=== PATIENT | female | born 1960 | race Caucasian/White ===

== ENCOUNTER 2017-01-01 13:26 | Emergency (ER) | payer MEDICAID, OTHER ==
[2017-01-01 13:48] VITALS: TEMP 98
[2017-01-01] MEDS ORDERED: MECLIZINE HCL 25 MG TAB PO ONE (14:37)
--- NOTE | 2017-01-01 14:41 | EDPHY ---
H & P Stated Complaint: pt c/o Dizzyness since last pm Time Seen by Provider: 01/01/17 14:09 HPI/ROS: CHIEF COMPLAINT: Vertigo HISTORY OF PRESENT ILLNESS: The patient is a 56-year-old female who comes to the emergency department complaining of intense intermittent vertigo since yesterday morning. She states that it began when she sat up in bed. It fatigues if she sits still. When she turns her head rapidly or sits up it begins again. She has not had any focal weakness or numbness. She is able to ambulate without difficulty. She does not have any vision or hearing changes. REVIEW OF SYSTEMS: Constitutional: denies: chills, fever, recent illness, recent injury EENTM: denies: blurred vision, double vision, nose congestion Respiratory: denies: cough, shortness of breath Cardiac: denies: chest pain, irregular heart rate, lightheadedness, palpitations Gastrointestinal/Abdominal: denies: abdominal pain, diarrhea, nausea, vomiting, blood streaked stools Genitourinary: denies: dysuria, frequency, hematuria, pain Musculoskeletal: denies: joint pain, muscle pain Skin: denies: lesions, rash, jaundice, bruising Neurological: denies: headache, numbness, paresthesia, tingling, dizziness, weakness Hematologic/Lymphatic: denies: blood clots, easy bleeding, easy bruising Immunologic/allergic: denies: HIV/AIDS, transplant - Physical Exam General Appearance: WD/WN, mild distress Eyes, Ears, Nose, Throat Exam: PERRL/EOMI, normal ENT inspection, pharynx normal nystagmus primarily with gaze to the right or with Hallpike to the right Neck: non-tender, full range of motion, supple, normal inspection. No: stiff neck, tender lateral Cardiovascular/Chest: normal peripheral pulses, regular rate, rhythm Respiratory: chest non-tender, lungs clear, normal breath sounds. No: crackles , rhonchi Gastrointestinal/Abdominal: normal bowel sounds, non tender, soft Back Exam: normal inspection Extremity: normal range of motion, non-tender, normal inspection Mental Status: alert, oriented x 3 CN's Exam: normal hearing, normal speech, PERRL, normal eye position, normal gag reflex, normal pupil position, normal speech. No: facial asymmetry, facial droop, facial paresthesias, gaze palsy, tongue deviation to R, tongue deviation to L Coordination/Gait: normal finger to nose, normal gait Motor/Sensory: normal. No: motor deficit, sensory deficit, pronator drift (R), pronator drift (L), weak motor strength RUE, weak motor strength LUE, weak motor strength RLE, weak motor strength LLE DTR: tricep (R): 2+, tricep (L): 2+, knee (R): 2+, knee (L): 2+ Skin Exam: warm/dry, normal color Lymphatic: no adenopathy Source: Patient Exam Limitations: No limitations - Medical/Surgical History Hx Asthma: No Hx Chronic Respiratory Disease: No Hx Diabetes: No Hx Cardiac Disease: No Hx Renal Disease: No Hx Cirrhosis: No Other PMH: FibroMyalgia/Insomina/ diabetic - Family History Significant Family History: No pertinent family hx - Social History Smoking Status: Smoker current status UNK Alcohol Use: Sober Drug Use: None Constitutional: Initial Vital Signs Temperature (C) 36.6 C 01/01/17 13:47 Heart Rate 85 01/01/17 13:47 Respiratory Rate 18 01/01/17 13:47 Blood Pressure 148/94 H 01/01/17 13:47 O2 Sat (%) 96 01/01/17 13:47 O2 Delivery Mode Room Air Allergies/Adverse Reactions: No Known Allergies Allergy (Unverified 11/03/15 07:42) Home Medications: Medication Instructions Recorded Albuterol 01/01/17 Byetta 01/01/17 Glimepiride 01/01/17 Hydrochlorothiazide 01/01/17 Levalbuterol 0.31 mg 01/01/17 Lisinopril 01/01/17 Meclizine HCl [Meclizine HCl 25 mg 25 mg PO BID #10 tab 01/01/17 (RX,OTC)] Metformin HCl 01/01/17 Proair Hfa 01/01/17 Rifadin 150mg (*) 01/01/17 Symbicort 160-4.5 Mcg Inh (*) 01/01/17 Zolpimist 01/01/17 traMADol 01/01/17 Medical Decision Making ED Course/Re-evaluation: I put the patient through the half somersault maneuver and then a Gina-Hallpike maneuver. Her symptoms resolved with the Gina-Hallpike. I will treat her with a with meclizine and have her follow up with ENT. She is happy with this and declines imaging or further testing. She is eager to go home. We discussed indications for returning. Differential Diagnosis: Partial list of the Differential diagnosis considered include but were not limited to; benign paroxysmal positional vertigo, labyrinthitis and although unlikely based on the history and physical exam, I also considered CVA, dissection, tumor. I discussed these differential diagnoses and the plan with the patient as well as the usual and expected course. The patient understands that the diagnosis is provisional and that in medicine we are not always correct and that further workup is often warranted. Usual and customary warnings were given. All of the patient's questions were answered. The patient was instructed to return to the emergency department should the symptoms at all worsen or return, otherwise to followup with the physician as we discussed. - Data Points Medications Given: Discontinued Medications Meclizine HCl (Meclizine Hcl) 25 mg PO EDNOW ONE Stop: 01/01/17 14:38 Last Admin: 01/01/17 14:50 Dose: 25 mg Departure - Departure Disposition: Home, Routine, Self-Care Clinical Impression: Benign positional vertigo Qualifiers: Laterality: right Qualified Code(s): H81.11 - Benign paroxysmal vertigo, right ear Condition: Fair Instructions: Benign Paroxysmal Positional Vertigo (ED) Referrals: Kandy Edmondson MD [Primary Care Provider] - As per Instructions Lyndsey Vincent MD [Medical Doctor] - As per Instructions Prescriptions: Meclizine HCl [Meclizine HCl 25 mg (RX,OTC)] 25 mg PO BID #10 tab
[2017-01-01 18:35] VITALS: BP 142/88; PULSE 102; RESP 20; O2SAT 94
== END 2017-01-01 14:54 | disposition home or self-care (01) ==
LOC: CED 13:26
DX: H81.11 Benign paroxysmal vertigo, right ear (principal)

== ENCOUNTER 2018-02-09 15:05 | Day surgery (SDC) | payer MEDICAID ==
[2018-02-09] MEDS ORDERED: LR 1,000 ML IV ONE (15:22)
[2018-02-09] MEDS ORDERED: LIDOCAINE 1% 2 ML INJ ID PRN (15:22)
--- NOTE | 2018-02-09 15:56 | PDANEPAE ---
ANE Past Medical History - Cardiovascular History Hx Hypertension: Yes Hx Arrhythmias: No Hx Chest Pain: No Hx Coronary Artery / Peripheral Vascular Disease: No Hx CHF / Valvular Disease: No Hx Palpitations: No Cardiovascular History Comment: CHF, CARDIOMYOPATHY, HYPERLIPIDEMIA - Pulmonary History Hx COPD: Yes Hx Asthma/Reactive Airway Disease: Yes Hx Recent Upper Respiratory Infection: No Hx Oxygen in Use at Home: Yes Hx Sleep Apnea: Yes Sleep Apnea Screening Result - Last Documented: Positive Pulmonary History Comment: SMOKER, LOBITO W/CPAP - Neurologic History Hx Cerebrovascular Accident: No Hx Seizures: No Hx Dementia: No - Endocrine History Hx Diabetes: Yes Hypothyroid: No Hyperthyroid: No Obesity: yes Endocrine History Comment: IDDM TYPE 2 /x 4 years. weight listed as 70kg which seems underestimated from a clinical perspective - Renal History Hx Renal Disorders: No - Liver History Hx Hepatic Disorders: No - Neurological & Psychiatric Hx Hx Neurological and Psychiatric Disorders: Yes Neurological / Psychiatric History Comment: BIPOLAR 2 DISORDER, INSOMNIA - Cancer History Hx Cancer: No - Congenital Disorder History Hx Congenital Disorders: No - GI History GERD: no Hx Gastrointestinal Disorders: Yes Gastrointestinal History Comment: HX POLYPS - Other Health History Other Health History: FIBROMYALGIA - Chronic Pain History Chronic Pain: Yes (KNEES) - Surgical History Prior Surgeries: UNKNOWN ANE Review of Systems Review of Systems: - Exercise capacity METS (RN): 4 METS ANE Patient History - Allergies Allergies/Adverse Reactions: No Known Allergies Allergy (Unverified 11/03/15 07:42) - Home Medications Home Medications: Albuterol 01/01/17 [Last Taken 01/19/18] Glimepiride 01/01/17 [Last Taken 02/08/18] Lisinopril 01/01/17 [Last Taken 02/09/18] Metformin HCl 01/01/17 [Last Taken 02/08/18] Proair Hfa 01/01/17 [Last Taken 02/09/18] Symbicort 160-4.5 Mcg Inh (*) 01/01/17 [Last Taken 02/09/18] traMADol 01/01/17 [Last Taken 02/02/18] Aspirin 325 mg (*) 01/27/18 [Last Taken 02/02/18] Chlorthalidone 25 mg (*) 01/27/18 [Last Taken 02/08/18] Cyclobenzaprine 01/27/18 [Last Taken 02/08/18] Gabapentin 01/27/18 [Last Taken 02/08/18] Levemir 01/27/18 [Last Taken 02/08/18] Repaglinide 01/27/18 [Last Taken 02/02/18] Victoza 3-Jose Eduardo 01/27/18 [Last Taken 02/08/18] - NPO status NPO Since - Liquids (Date): 02/09/18 NPO Since - Liquids (Time): 13:30 NPO Since - Solids (Date): 02/08/18 NPO Since - Solids (Time): 03:00 ANE Labs/Vital Signs - Vital Signs Blood Pressure: 137/85 Heart Rate: 96 Respiratory Rate: 14 O2 Sat (%): 92 Height: 162 cm Weight: 70 kg ANE Physical Exam - Airway Neck exam: FROM Mallampati Score: Class 3 Mouth exam: normal dental/mouth exam - Pulmonary Pulmonary: no respiratory distress, no rales or rhonchi, clear to auscultation - Cardiovascular Cardiovascular: regular rate and rhythym, no murmur, rub, or gallop - ASA Status ASA Status: III ANE Anesthesia Plan Anesthesia Plan: MAC Total IV Anesthesia: Yes
[2018-02-09] MEDS ORDERED: PROPOFOL 200 MG/20 ML VIAL ONE ×3 (16:24→17:10)
[2018-02-09] MEDS ORDERED: fentaNYL 100 MCG/2 ML INJ ONE (16:24)
[2018-02-09] MEDS ORDERED: LIDOCAINE 2% 5 ML SDV ONE (16:25)
[2018-02-09] MEDS ORDERED: PHENYLEPHRINE HCL 100 MCG/ML SYR IVP PRN (16:39)
[2018-02-09] MEDS ORDERED: LR 500 ML IV PRN (16:39)
[2018-02-09] MEDS ORDERED: ACETAMINOPHEN 500 MG TAB PO PRN (16:39)
[2018-02-09] MEDS ORDERED: ONDANSETRON 4 MG/2 ML VIAL IVP PRN (16:39)
[2018-02-09] MEDS ORDERED: ALBUTEROL 3 ML DEYVIAL IH PRN (16:39)
[2018-02-09] MEDS ORDERED: NALOXONE HCL 0.4 MG/ML INJ IVP PRN (16:39)
--- NOTE | 2018-02-09 16:48 | PDGENHP ---
History & Physical Chief Complaint: screen History of Present Illness: screen Pertinent Past, Social, Family History: N/A Relevant Physical Exam: polyps Cardiorespiratory Assessment: cor RRR pul CTAP abd profuse ms nl
--- NOTE | 2018-02-09 17:21 | GIREPORT ---
[facility] Surgical Services - Endoscopy Department Patient Name: Vidhi Luque Procedure Date: 02/09/2018 3:48 PM Patient Type: Outpatient Attending MD/ ER Physician: Anderson Prasad MD Procedure: Colonoscopy Indications: Family history of colonic polyps, in a first-degree relative (mom, age unknown). Negative exam seven years prior. Providers: Anderson Prasad MD, FACG Referring MD: Kandy Edmondson MD Medicines: See the Anesthesia note for documentation of the administered medicatio ns Complications: No immediate complications. Description of Procedure: After obtaining informed consent, the scope was passed under direct vis ion. Throughout the procedure, the patient's blood pressure, pulse, and oxyg en saturations were monitored continuously. The Colonoscope was introduced through the anus and advanced to the terminal ileum. Findings: Two 2 mm polyps were found in the sigmoid colon, removed with cold biop sies. A few diverticula were found in the sigmoid colon. Internal hemorrhoids were found. The hemorrhoids were very small. Estimated Blood Loss: Estimated blood loss: none. Post Op Diagnosis: Polyps, very small, as above. Recommendation: - Pathology results pending. - Repeat colonoscopy in 10 years for screening purposes, based on the l [facility] guidelines. - Thank you for allowing me to help in the management of this patient. Attending Participation: I personally performed the entire procedure. Shanice Barron MD Anderson Prasad MD 02/09/2018 5:20:56 PM This report has been signed electronicallyPeter MD Shanice Number of Addenda: 0 Note Initiated On: 02/09/2018 3:48 PM Total Procedure Duration Time 0 hours 20 minutes 10 seconds [email or web address]
[2018-02-09 18:12] VITALS: BP 129/81
== END 2018-02-09 18:25 | disposition home or self-care (01) ==
LOC: FSGY 15:05
PROVIDERS: ATTEND Internal Medicine Gastroenterology
PROC: 0DBE8ZX Excision of Large Intestine, Via Natural or Artificial Opening Endoscopic, Diagnostic (ICD-10-PCS; principal; 2018-02-09 16:30)
DX: Z12.11 Encounter for screening for malignant neoplasm of colon (principal); D12.5 Benign neoplasm of sigmoid colon; K57.30 Diverticulosis of large intestine without perforation or abscess without bleeding; R58 Hemorrhage, not elsewhere classified; J44.9 Chronic obstructive pulmonary disease, unspecified; E11.9 Type 2 diabetes mellitus without complications; I10 Essential (primary) hypertension; E78.5 Hyperlipidemia, unspecified; F17.200 Nicotine dependence, unspecified, uncomplicated; Z83.71 Family history of colonic polyps
CPT/HCPCS: J2704; J3010

== ENCOUNTER → 2018-04-13 | Outpatient (CLI) | payer MEDICAID | LOC: FIMAGING 12:11 | PROVIDERS: ATTEND Internal Medicine | DX: J44.9 Chronic obstructive pulmonary disease, unspecified (principal); I42.9 Cardiomyopathy, unspecified; E11.9 Type 2 diabetes mellitus without complications ==

== ENCOUNTER → 2018-08-19 | Outpatient (CLI) | payer MEDICAID | LOC: BRMIMAGING 15:22 | PROVIDERS: ATTEND Internal Medicine | DX: M25.50 Pain in unspecified joint (principal) | CPT/HCPCS: 73130-PO; 73562-PO ==

== ENCOUNTER → 2018-09-14 | Outpatient (CLI) | payer MEDICAID | LOC: CIMAGING 10:16 | PROVIDERS: ATTEND Internal Medicine | DX: K76.0 Fatty (change of) liver, not elsewhere classified (principal) | CPT/HCPCS: 76700-PO ==

== ENCOUNTER 2018-11-18 15:18 | Emergency (ER) | payer MEDICAID ==
[2018-11-18 15:25] VITALS: BP 151/78
[2018-11-18] MEDS ORDERED: traMADol 50 MG TAB PO ONE (15:41)
[2018-11-18] MEDS ORDERED: IBUPROFEN 600 MG TAB PO ONE (15:41)
--- NOTE | 2018-11-18 15:44 | EDPHY ---
H & P Time Seen by Provider: 11/18/18 15:26 HPI/ROS: CHIEF COMPLAINT: Right-sided flank and abdominal pain HISTORY OF PRESENT ILLNESS: Started last night around midnight got worse at 4: 00 a.m.. Associated with some burning in urination. Pain is right side of her abdomen radiates to her right side of her back. Is intermittent and crampy and severe. Not associated with vomiting or diarrhea or fevers or chills. No injury or recent trauma. Not lightheaded or dizzy, no weakness or numbness in the legs or feet. Symptoms moderate to severe right now, a little worse with position change. REVIEW OF SYSTEMS: Eye: no change in vision ENT: no sore throat Cardiac: no chest pain or syncope Pulmonary: no cough or SOB Abdomen: HPI Musculoskeletal: HPI, has some chronic pain from her fibromyalgia Skin: no rash Neuro: no headache Constitutional: no fever : HPI A comprehensive 10 point review of systems is otherwise negative aside from elements mentioned in the history of present illness. 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 Tobacco smoker. General Appearance: Alert and conversant, cooperative. Eyes: No scleral icterus. ENT, Mouth: Normal mucous membranes. Respiratory: Normal respiratory effort, breath sounds equal, lungs are clear to auscultation. Cardiovascular: Regular rate and rhythm. Gastrointestinal: Slight right-sided lower lateral abdominal tenderness, normal bowel sounds, not distended. No rebound or guarding. No pulsatile mass. No Sherman sign. No right upper quadrant tenderness. No McBurney's point tenderness. Neurological: Alert, face symmetric, normal motor and sensory in extremities. Ambulatory, toes downgoing bilaterally, patellar reflexes 1+ symmetric, no clonus. Skin: Warm and dry, no rashes. Musculoskeletal: Mild right CVA tenderness greater than left. Psychiatric: Not agitated. Emergency Department course/MDM: Patient initially declined narcotic pain medication. Oral ibuprofen and her usual 50 mg tramadol, urinalysis and noncontrast CT abdomen pelvis discussed and consented to evaluate for renal colic or alternative diagnosis. Considered including but not limited to UTI, pyelonephritis, renal colic, appendicitis, gallbladder disease, aortic aneurysm or other vascular. 1632: Results discussed with the patient, she states agreement that she is comfortable with discharge without any further testing or diagnostics. I will write her prescription for 2 days of tramadol which is what she usually takes for her fibromyalgia and tolerates, recommended around the clock pain medication and NSAID for the next 48 hr, follow up with her primary care doctor. Likely muscular, also could be nerve. Smoking Status: Current every day smoker Constitutional: Initial Vital Signs Temperature (C) 36.9 C 11/18/18 15:22 Heart Rate 93 11/18/18 15:22 Respiratory Rate 18 11/18/18 15:22 Blood Pressure 151/78 H 11/18/18 15:22 O2 Sat (%) 95 11/18/18 15:22 O2 Delivery Mode Room Air Allergies/Adverse Reactions: No Known Allergies Allergy (Verified 11/18/18 15:21) Home Medications: Medication Instructions Recorded Albuterol 01/01/17 Glimepiride 01/01/17 Lisinopril 01/01/17 Metformin HCl 01/01/17 Proair Hfa 01/01/17 Symbicort 160-4.5 Mcg Inh (*) 01/01/17 traMADol 01/01/17 Aspirin 325 mg (*) 01/27/18 Chlorthalidone 25 mg (*) 01/27/18 Cyclobenzaprine 01/27/18 Gabapentin 01/27/18 Levemir 01/27/18 Repaglinide 01/27/18 Victoza 3-Jose Eduardo 01/27/18 Tramadol HCl 50 mg PO Q12 #5 tablet 11/18/18 Medical Decision Making - Diagnostics Imaging Results: Imaging Impressions Abdomen/Pelvis CT 11/18/18 15:41 Impression: 1. No acute findings in the abdomen or pelvis. 2. Mild stool in the colon. 3. Diverticulosis without evidence of diverticulitis. 4. Mildly prominent jose hepatis and portacaval lymph nodes, likely within normal limits for body habitus. 5. Hepatic steatosis. 6. Additional findings as above. Findings discussed with QASIM FITZPATRICK 11/18/2018 at 16:08. Attention: This CT examination is specifically designed to evaluate patients who are clinically suspected of having acute obstructive uropathy. This examination does not use radiographic contrast and provides only a limited evaluation of the abdomen, pelvis and retroperitoneum. If there is further clinical suspicion for pathological conditions other than obstructive uropathy, a complete CT evaluation of the abdomen and pelvis utilizing intravenous and enteric contrast should be considered. Imaging: Discussed imaging studies w/ leak gang supervisor Radiologist - Data Points Laboratory Results: 11/18/18 15:40 Urine Color PALE YELLOW Urine Appearance CLEAR Urine pH 7.0 (5.0-7.5) Ur Specific [place] 1.011 (1.002-1.030) Urine Protein NEGATIVE (NEGATIVE) Urine Ketones NEGATIVE (NEGATIVE) Urine Blood NEGATIVE (NEGATIVE) Urine Nitrate NEGATIVE (NEGATIVE) Urine Bilirubin NEGATIVE (NEGATIVE) Urine Urobilinogen NEGATIVE EU EU (0.2-1.0) Ur Leukocyte Esterase NEGATIVE (NEGATIVE) Urine Glucose NEGATIVE (NEGATIVE) Medications Given: Discontinued Medications Ibuprofen (Motrin) 600 mg PO EDNOW ONE Stop: 11/18/18 15:42 Last Admin: 11/18/18 15:45 Dose: 600 mg Tramadol HCl (Ultram) 50 mg PO EDNOW ONE Stop: 11/18/18 15:42 Last Admin: 11/18/18 15:45 Dose: 50 mg Departure - Departure Disposition: Home, Routine, Self-Care Clinical Impression: Back pain Qualifiers: Back pain location: low back pain Chronicity: acute Back pain laterality: right Sciatica presence: without sciatica Qualified Code(s): M54.5 - Low back pain Abdominal pain Qualifiers: Abdominal location: right lower quadrant Qualified Code(s): R10.31 - Right lower quadrant pain Condition: Good Instructions: Acute Low Back Pain (ED) Additional Instructions: Ibuprofen 600 mg every 8 hr for the next 3 days. Tramadol orally schedule twice a day for the next 2 days, call your prescribing physician for the tramadol tomorrow to arrange adequate prescription for more. Referrals: Kandy Edmondson MD [Primary Care Provider] - As per Instructions Prescriptions: Tramadol HCl 50 mg PO Q12 #5 tablet
== END 2018-11-18 16:48 | disposition home or self-care (01) ==
DX: M54.5 Low back pain (principal); R10.31 Right lower quadrant pain; M79.7 Fibromyalgia; F17.200 Nicotine dependence, unspecified, uncomplicated

== ENCOUNTER → 2019-02-11 | Outpatient (CLI) | payer MEDICAID | LOC: CIMAGING 14:01 ==